=== PATIENT | female | born 1970 | race Caucasian/White ===

== ENCOUNTER → 2017-02-06 | Outpatient (CLI) | payer OTHER ==
[~2017-02-06] MED LIST: ARIP5TAB10 PO; CALC-946 PO; CALC600T12 PO; CALC750T4 PO; DOCU-168 PO; ESCI10TA47 PO; ESCI20TA30 PO; FISH1CAP2 PO; LEVO125T4 PO; MULT-933 PO; OMEP-122 PO; VALARIAN ROOT PO
== END ==
LOC: WC.BC 14:30
DX: Z12.31 Encounter for screening mammogram for malignant neoplasm of breast (principal)
CPT/HCPCS: 77063; G0202